=== PATIENT | female | born 1995 | race Caucasian/White ===

== ENCOUNTER 2021-07-22 02:55 | Emergency (ER) | payer OTHER ==
[2021-07-22] MEDS ORDERED: IBUPROFEN800 MG PO ×2 (03:52→06:43)
[2021-07-22] MEDS ORDERED: AUGMENTIN 875-1 EACH PO ×2 (03:52→06:43)
[2021-07-22 04:15] LABS: CORONAVIRUS 2019 SARS-COV-2 NEGATIVE (NEGATIVE); INFLUENZA A NAA NEGATIVE (NEGATIVE)
== END 2021-07-22 04:10 | disposition home or self-care (01) ==
LOC: FER 02:55
PROVIDERS: Emergency Medicine Emergency Medical Services
DX: J01.90 Acute sinusitis, unspecified (principal); F17.210 Nicotine dependence, cigarettes, uncomplicated; Z20.822 Contact with and (suspected) exposure to COVID-19; Z88.5 Allergy status to narcotic agent
CPT/HCPCS: 99283; J1885; J7512; U0002

== ENCOUNTER 2021-10-06 00:15 | Emergency (ER) | payer OTHER ==
[~2021-10-06 00:15] MED LIST: AUGMENTIN 875-1 EACH PO; IBUPROFEN800 MG PO
[2021-10-06] MEDS ORDERED: NORCO 5-325 TA1 EACH PO (02:27)
== END 2021-10-06 02:48 | disposition home or self-care (01) ==
LOC: FER 00:15
DX: K08.89 Other specified disorders of teeth and supporting structures (principal); K21.9 Gastro-esophageal reflux disease without esophagitis; F17.210 Nicotine dependence, cigarettes, uncomplicated; Z88.5 Allergy status to narcotic agent; Z79.899 Other long term (current) drug therapy
CPT/HCPCS: 99282

== ENCOUNTER 2021-10-27 00:56 | Emergency (ER) | payer OTHER ==
[~2021-10-27 00:56] MED LIST changes: +NORCO 5-325 TA1 EACH PO
[2021-10-27 01:58] LABS: BILIRUBIN NEGATIVE (NEGATIVE); BLOOD NEGATIVE Ery/uL (NEGATIVE); CLARITY CLEAR (CLEAR); COLOR YELLOW (YELLOW); GLUCOSE (U) NORMAL (NORMAL); LEUKOCYTES 3+ Leu/uL (NEGATIVE); NITRITE NEGATIVE (NEGATIVE); PROTEIN NEGATIVE (NEGATIVE); UROBILINOGEN 0.2 mg/dL (0.2-1.0)
[2021-10-27 02:09] LABS: BACTERIA 2+
[2021-10-27] MEDS ORDERED: VIBRAMYCIN100 MG PO (02:25)
[2021-10-27] MEDS ORDERED: MONISTAT TOP (02:28)
[2021-10-27] MEDS ORDERED: [UNRECOGNIZED DRUG - OTHER] TOP (02:28)
[2021-10-27] MEDS ORDERED: MONISTAT SOOTHI42 GM TOP (02:28)
[2021-10-29 03:06] LABS: CHLAMYDIA TRACHOMATIS, NAA Negative (Negative); NEISSERIA GONORRHOEAE, NAA Negative (Negative)
== END 2021-10-27 02:45 | disposition home or self-care (01) ==
LOC: FER 00:56
PROVIDERS: Internal Medicine
DX: N89.8 Other specified noninflammatory disorders of vagina (principal); R30.0 Dysuria; F17.210 Nicotine dependence, cigarettes, uncomplicated; Z88.5 Allergy status to narcotic agent; Z28.310 Unvaccinated for COVID-19
CPT/HCPCS: 81001; 87491; 87591; J0696

== ENCOUNTER 2021-12-07 19:30 | Emergency (ER) | payer SELFPAY ==
[~2021-12-07 19:30] MED LIST changes: +MONISTAT SOOTHI42 GM TOP; +MONISTAT TOP; +VIBRAMYCIN100 MG PO; +[UNRECOGNIZED DRUG - OTHER] TOP
[2021-12-07 22:18] LABS: BILIRUBIN NEGATIVE (NEGATIVE); BLOOD NEGATIVE Ery/uL (NEGATIVE); CLARITY CLEAR (CLEAR); COLOR YELLOW (YELLOW); GLUCOSE (U) NORMAL (NORMAL); LEUKOCYTES NEGATIVE Leu/uL (NEGATIVE); NITRITE NEGATIVE (NEGATIVE); PROTEIN NEGATIVE (NEGATIVE); SPECIFIC GRAVITY 1.025 (1.001-1.030); UROBILINOGEN 0.2 mg/dL (0.2-1.0); pH 6.5 (5.0-9.0)
[2021-12-07 22:31] LABS: BACTERIA 1+
[2021-12-07] MEDS ORDERED: CEPHALEXIN500 MG PO (23:11)
[2021-12-07] MEDS ORDERED: PRENATAL VITAM1 EAC3 PO (23:11)
== END 2021-12-07 23:30 | disposition home or self-care (01) ==
LOC: FER 19:30
PROVIDERS: Physician Assistant
DX: S39.012A Strain of muscle, fascia and tendon of lower back, initial encounter (principal); R82.71 Bacteriuria; F17.210 Nicotine dependence, cigarettes, uncomplicated; Z28.310 Unvaccinated for COVID-19; Z88.5 Allergy status to narcotic agent; Z32.01 Encounter for pregnancy test, result positive
CPT/HCPCS: 81001; 99283

== ENCOUNTER 2022-02-10 19:03 | Emergency (ER) | payer OTHER ==
[~2022-02-10 19:03] MED LIST changes: +CEPHALEXIN500 MG PO; +PRENATAL VITAM1 EAC3 PO
[2022-02-11 01:50] LABS: BASOPHIL 0.3 % (0-2); EOSINOPHIL 1.7 % (0-5); HCT 35.8 % (37.0-47.0); HGB 12.4 g/dl (12.5-16.0); LYMPHOCYTE 24.2 % (15-48); MCH 32.8 pg (25.0-31.0); MCHC 34.6 g/dL (32.0-36.0); MCV 94.7 fL (78.0-100.0); MONOCYTE 7.8 % (0-12); NEUTROPHIL 65.5 % (41-80); NRBC 0; PLT 177 K/uL (150-400); RBC 3.78 M/uL (4.20-5.40); RDW 12.4 % (11.5-14.0); WBC 5.8 K/uL (4.0-10.5)
[2022-02-11 02:11] LABS: ALBUMIN 2.7 g/dL (3.4-5.0); BILIRUBIN - TOTAL 0.3 mg/dL (0.2-1.0); BUN/CREAT RATIO (CALC) 11.5 RATIO; CREATININE 0.61 mg/dL (0.51-0.95); GLOBULIN (CALCULATION) 3.3 g/dL; POTASSIUM 3.4 mmol/L (3.5-5.1)
[2022-02-11] MEDS ORDERED: PRENATAL FORMU1 EACH PO (02:59)
[2022-02-11 03:25] LABS: BILIRUBIN 1+ mg/dL (NEGATIVE); BLOOD NEGATIVE Ery/uL (NEGATIVE); CLARITY CLEAR (CLEAR); COLOR YELLOW (YELLOW); GLUCOSE (U) NORMAL (NORMAL); LEUKOCYTES NEGATIVE Leu/uL (NEGATIVE); NITRITE NEGATIVE (NEGATIVE); PROTEIN NEGATIVE (NEGATIVE); SPECIFIC GRAVITY >=1.030 (1.001-1.030)
[2022-02-11 03:31] LABS: SQUAMOUS EPITHELIAL CELLS 20-50
[2022-02-11 03:34] LABS: BACTERIA 2+
[2022-02-11] MEDS ORDERED: CEPHALEXIN500 MG PO (03:47)
== END 2022-02-11 03:55 | disposition home or self-care (01) ==
LOC: FER 19:03
PROVIDERS: Emergency Medicine
DX: O99.891 Other specified diseases and conditions complicating pregnancy (principal); O23.40 Unspecified infection of urinary tract in pregnancy, unspecified trimester; O99.619 Diseases of the digestive system complicating pregnancy, unspecified trimester; O99.330 Smoking (tobacco) complicating pregnancy, unspecified trimester; R11.2 Nausea with vomiting, unspecified; F17.200 Nicotine dependence, unspecified, uncomplicated; K21.9 Gastro-esophageal reflux disease without esophagitis; Z28.310 Unvaccinated for COVID-19; Z79.899 Other long term (current) drug therapy; Z88.5 Allergy status to narcotic agent
CPT/HCPCS: 36415; 80053; 81001; 84702; 85025; J2405; J7030